=== PATIENT | female | born 1940 | race Caucasian/White ===

== ENCOUNTER → 2017-02-19 | Outpatient (CLI) | payer OTHER, BC ==
[~2017-02-19] MED LIST: ASPCH81X PO; BIOT1CAP8 PO; CHOL2000 PO; DONE10TA12 PO; FSM70 PO
[2017-02-19 10:21] LABS: HEMATOCRIT 42.4 % (37-47); MEAN CELL VOLUME 91.4 fL (80-100); MEAN CORPUSCULAR HEMOGLOBIN 30.8 pg (25-34); MEAN CORPUSCULAR HGB CONC 33.7 g/dl (32-36); MEAN PLATELET VOLUME 10.7 fL (7.4-10.4); PLATELET COUNT 186 K/uL (130-400); RED BLOOD COUNT 4.64 M/uL (4.2-5.4); WHITE BLOOD COUNT 6.87 K/uL (4.8-10.8)
[2017-02-19 10:32] LABS: BLOOD UREA NITROGEN 24 mg/dl (7-18); BUN/CREATININE RATIO 18.2 (10-20); CALCIUM 9.4 mg/dl (8.5-10.1); CARBON DIOXIDE 30 mmol/L (21-32); CHLORIDE 103 mmol/L (98-107); GLUCOSE 114 mg/dl (70-99); PHOSPHORUS 2.8 mg/dl (2.5-4.9); SODIUM 138 mmol/L (136-145); URINE APPEARANCE CLEAR (CLEAR); URINE BILIRUBIN NEG (NEG); URINE COLOR YELLOW; URINE EPITHELIAL CELL AUTO >30 /lpf (0-5); URINE NITRITE NEG (NEG); URINE SPECIFIC GRAVITY 1.014 (1.000-1.030); UROBILINOGEN NEG (NEG)
[2017-02-19 10:34] LABS: MANUAL MICROSCOPIC REQUIRED? NO; REVIEW REQ? NO
[2017-02-19 10:46] LABS: URINE PROTIEN/CREAT RATIO 0.1 (0-0.2); URINE TOTAL PROTEIN 7.8 mg/dl (0-11.9)
== END | disposition home or self-care (01) ==
LOC: C.LAB1850 09:06
PROVIDERS: ATTEND Internal Medicine Nephrology
DX: I12.9 Hypertensive chronic kidney disease with stage 1 through stage 4 chronic kidney disease, or unspecified chronic kidney disease (principal); N18.3 Chronic kidney disease, stage 3 (moderate); E55.9 Vitamin D deficiency, unspecified

== ENCOUNTER → 2017-08-26 | Outpatient (CLI) | payer OTHER, BC ==
[2017-08-26 13:39] LABS: HEMATOCRIT 35.7 % (37-47); MEAN CELL VOLUME 87.7 fL (80-100); MEAN CORPUSCULAR HEMOGLOBIN 28.3 pg (25-34); MEAN CORPUSCULAR HGB CONC 32.2 g/dl (32-36); PLATELET COUNT 324 K/uL (130-400); RED BLOOD COUNT 4.07 M/uL (4.2-5.4); WHITE BLOOD COUNT 5.87 K/uL (4.8-10.8)
[2017-08-26 13:45] LABS: URINE APPEARANCE CLEAR (CLEAR); URINE BILIRUBIN NEG (NEG); URINE COLOR YELLOW; URINE NITRITE NEG (NEG); URINE PH 5.5 (4.5-7.5); URINE SPECIFIC GRAVITY 1.019 (1.000-1.030); UROBILINOGEN NEG (NEG)
[2017-08-26 13:49] LABS: MANUAL MICROSCOPIC REQUIRED? NO; REVIEW REQ? YES
[2017-08-26 14:24] LABS: URINE PROTIEN/CREAT RATIO 0.1 (0-0.2); URINE TOTAL PROTEIN 13.6 mg/dl (0-11.9)
[2017-08-26 14:40] LABS: BLOOD UREA NITROGEN 16 mg/dl (7-18); BUN/CREATININE RATIO 15.1 (10-20); CARBON DIOXIDE 23 mmol/L (21-32); CHLORIDE 103 mmol/L (98-107); CREATININE 1.06 mg/dl (0.60-1.20); GLUCOSE 91 mg/dl (70-99); PHOSPHORUS 2.5 mg/dl (2.5-4.9); POTASSIUM 3.8 mmol/L (3.5-5.1); SODIUM 139 mmol/L (136-145)
== END | disposition home or self-care (01) ==
LOC: C.LAB1850 12:15
PROVIDERS: ATTEND Internal Medicine Nephrology
DX: I12.9 Hypertensive chronic kidney disease with stage 1 through stage 4 chronic kidney disease, or unspecified chronic kidney disease (principal); N18.3 Chronic kidney disease, stage 3 (moderate); E55.9 Vitamin D deficiency, unspecified

== ENCOUNTER → 2018-02-22 | Outpatient (CLI) | payer OTHER, BC ==
[2018-02-22 14:38] LABS: HEMATOCRIT 40.7 % (37-47); HEMOGLOBIN 13.7 g/dL (12.0-16.0); MEAN CELL VOLUME 90.6 fL (80-100); MEAN CORPUSCULAR HEMOGLOBIN 30.5 pg (25-34); MEAN CORPUSCULAR HGB CONC 33.7 g/dl (32-36); MEAN PLATELET VOLUME 11.1 fL (7.4-10.4); PLATELET COUNT 174 K/uL (130-400); RED CELL DISTRIBUTION WIDTH CV 12.9 % (11.5-14.5); RED CELL DISTRIBUTION WIDTH SD 42.8 fL (36.4-46.3); WHITE BLOOD COUNT 6.82 K/uL (4.8-10.8)
[2018-02-22 15:45] LABS: ALBUMIN 3.7 gm/dl (3.4-5.0); BLOOD UREA NITROGEN 24 mg/dl (7-18); CARBON DIOXIDE 29 mmol/L (21-32); CREATININE 1.17 mg/dl (0.60-1.20); GLUCOSE 115 mg/dl (70-99); POTASSIUM 4.5 mmol/L (3.5-5.1); SODIUM 137 mmol/L (136-145)
[2018-02-22 15:46] LABS: PHOSPHORUS 2.9 mg/dl (2.5-4.9)
== END | disposition home or self-care (01) ==
LOC: C.LAB1850 13:24
PROVIDERS: ATTEND Internal Medicine Nephrology
DX: N18.3 Chronic kidney disease, stage 3 (moderate) (principal); E55.9 Vitamin D deficiency, unspecified; I12.9 Hypertensive chronic kidney disease with stage 1 through stage 4 chronic kidney disease, or unspecified chronic kidney disease

== ENCOUNTER 2021-12-12 20:54 | Observation (INO) ==
--- NOTE | 2021-12-12 21:50 | Emergency Department Note ---
History of Present Illness General Chief complaint: Chest Pain Stated complaint: Chest Pain Time Seen by Provider: 12/12/21 21:19 Source: patient, family ( who is at the bedside) and old records reviewed Mode of arrival: EMS Limitations: no limitations History of Present Illness Maximum Pain Intensity: 0 This patient is a an 81-year-old female who comes in after midepigastric pain after eating dinner around 7:00 it was sharp it did not radiate she was a little diaphoretic denies shortness of breath. It lasted greater than 30 minutes she just eaten some spaghetti. Nothing particular made it better or worse it just went away she is asymptomatic at present. Denies pain or swelling of her lower legs. No recent illness no fever chills. no trauma. no cough or shortness of breath. Home Medications Medication Instructions Recorded Confirmed Type alendronate 70 mg tablet 70 mg PO WK 09/05/18 12/12/21 History aspirin 81 mg tablet,delayed 81 mg PO HS 09/05/18 12/12/21 History release (Aspirin Low Dose) biotin 1 mg capsule 1 mg PO QAM 09/05/18 12/12/21 History cholecalciferol (vitamin D3) 50 2,000 units PO QAM 09/05/18 12/12/21 History mcg (2,000 unit) capsule (Vitamin D3) donepezil 10 mg tablet 10 mg PO HS 09/05/18 12/12/21 History memantine 10 mg tablet 10 mg PO BID 09/05/18 12/12/21 History Allergies Allergy/AdvReac Type Severity Reaction Status Date / Time Sulfa (Sulfonamide Allergy Mild mild rash Verified 12/12/21 21:51 Antibiotics) niacin Allergy Unknown UNSURE Verified 12/12/21 21:51 Past Med/Surg History Medical History (Updated 12/13/21 @ 01:29 by Jese Tian MD) History of cognitive deficit Osteoporosis Prolapsed uterus Stage 3 chronic kidney disease Vitamin D deficiency Surgical History History of left salpingo-oophorectomy Hx of colonoscopy Hx of hernia repair Hx of tonsillectomy Family History Sister Kidney disease Other Dyslipidemia No pertinent family history Social History Smoking Status: Never smoker Second Hand Exposure: Yes ( A CHILD); Hx Alcohol Use: Yes Alcohol type: wine Hx Substance Use: No Preferred Language: German Communication Ability: Effective Visual Impairment: No Limitations Manager Science Required: No Beliefs That Will Affect Care: None Current Living Situation: Spouse Feels Safe at Home: Yes Assistive Devices: Glasses Review of Systems A total of 10 systems reviewed and were otherwise negative Physical Exam Vital Signs Vital Signs - 24 hr 12/12/21 21:05 12/12/21 22:02 12/12/21 23:32 Temperature 36.7 C Temperature Source Oral Pulse Rate 80 78 Pulse Rate [Apical] 76 68 Pulse Rhythm Regular Pulse Rhythm [Apical] Regular Regular Pulse Strength Normal Pulse Strength [Apical] Normal Normal Respiratory Rate 16 16 16 Respiratory Effort / Characteristics Non-Labored Spontaneous Non-Labored Spontaneous Respiratory Depth Normal Normal Respiratory Pattern Regular Blood Pressure 175/127 H Blood Pressure [Right Arm] 151/70 H 150/74 H Blood Pressure Mean 143 Blood Pressure Mean [Right Arm] 97 99 Blood Pressure Position Lying Blood Pressure Position [Right Arm] Lying Lying Pulse Oximetry 100 100 96 Oxygen Delivery Method Room Air Room Air Room Air Sepsis Recent Fever Within 48 Hours No Sepsis New/Unexplained Change in Mental Status N/A Sepsis Action Taken by Nursing No Action Required 12/13/21 00:25 Temperature Temperature Source Pulse Rate Pulse Rate [Apical] 74 Pulse Rhythm Pulse Rhythm [Apical] Regular Pulse Strength Pulse Strength [Apical] Normal Respiratory Rate 16 Respiratory Effort / Characteristics Non-Labored Spontaneous Respiratory Depth Normal Respiratory Pattern Blood Pressure Blood Pressure [Right Arm] 148/64 H Blood Pressure Mean Blood Pressure Mean [Right Arm] 92 Blood Pressure Position Blood Pressure Position [Right Arm] Lying Pulse Oximetry 97 Oxygen Delivery Method Room Air Sepsis Recent Fever Within 48 Hours Sepsis New/Unexplained Change in Mental Status Sepsis Action Taken by Nursing General: Well developed well nourished older female who appears in no acute distress, breathing comfortably on room air. Normal speech HEENT: Normal cephalic atraumatic. Pupils are equal round and reactive to light. Extraocular movements are intact. Oropharynx is pink with moist mucous membranes. No swelling of the mouth lips or tongue. Neck: Supple with a midline trachea. No meningeal signs or stiffness, no JVD or bruits. No Stridor. Chest: Clear to auscultation bilaterally. No wheezes or rhonchi. No increased work of breathing. Heart: Regular rate and rhythm without murmurs or gallops. Abdomen: Soft mildly tender in the epigastric area nondistended without rebound guarding or rigidity. Extremities: No cyanosis clubbing or edema. No calf tenderness or assymetry Spine/Back. Non tender to palpation. No CVA tenderness Skin: Good turgor without rashes. Neurologic exam: Cranial nerves two through 12 are intact. Motor and sensation are intact and symmetrical throughout. Medical Decision Making Differential Diagnosis Acute coronary syndrome, arrhythmia, gallbladder disease, GERD, musculoskeletal, hiatal hernia, peptic ulcer disease, pancreatitis, bowel obstruction, bowel gas Medical Records Attestation: I reviewed the patient's medical records. Home Medications Current Medication List: was personally reviewed by me Laboratory Data Attestation: I reviewed the patient's lab results. Result diagrams: 12/12/21 21:56 12/12/21 21:56 Lab Results 12/12/21 12/12/21 12/12/21 Range/Units 21:56 21:56 21:56 WBC 8.44 (4.8-10.8) K/uL RBC 4.18 L (4.2-5.4) M/uL Hgb 11.9 L (12.0-16.0) g/dL Hct 36.2 L (37-47) % MCV 86.6 (80-100) fL MCH 28.5 (25-34) pg MCHC 32.9 (32-36) g/dL RDW Std Deviation 40.8 (36.4-46.3) fL RDW Coeff of Isma 12.7 (11.5-14.5) % Plt Count 187 (130-400) K/uL MPV 10.4 (7.4-10.4) fL Immature Gran % (Auto) 0.1 % Neut % (Auto) 81.8 % Lymph % (Auto) 12.6 % [place] % (Auto) 4.6 % Eos % (Auto) 0.7 % Baso % (Auto) 0.2 % Neut # (Auto) 6.90 H (1.4-6.5) K/uL Lymph # (Auto) 1.06 L (1.2-3.4) K/uL [place] # (Auto) 0.39 (0.11-0.59) K/uL Eos # (Auto) 0.06 (0-0.5) K/uL Baso # (Auto) 0.02 (0-0.2) K/uL Immature Gran # (Auto) 0.01 (0.00-0.02) K/uL PT 10.9 (9.0-12.0) Seconds INR 1.0 (0.9-1.1) APTT 21.7 (21.0-31.0) Seconds PTT Ratio 0.8 Sodium 136 (136-145) mmol/L Potassium 4.0 (3.5-5.1) mmol/L Chloride 103 (98-107) mmol/L Carbon Dioxide 23 (21-32) mmol/L Anion Gap 10 (3-11) BUN 21 (6-23) mg/dl Creatinine 1.11 (0.6-1.2) mg/dl Est Cr Clr Drug Dosing 34.6 ml/min Est GFR ( Amer) 53.2 ml/min Est GFR (Non-Af Amer) 45.9 ml/min BUN/Creatinine Ratio 18.9 (10-20) Glucose 139 H (70-99(Fasting)) mg/dl Calcium 9.6 (8.5-10.1) mg/dl Total Bilirubin 0.2 (0.2-1.0) mg/dl AST 17 (13-39) U/L ALT 10 (7-52) U/L Alkaline Phosphatase 107 H (34-104) U/L Troponin I < 0.03 (0-0.04) ng/ml Total Protein 7.0 (6.0-8.3) gm/dl Albumin 4.0 (3.4-5.0) gm/dl Globulin 3.0 (2.5-4.0) gm/dl Albumin/Globulin Ratio 1.3 (0.9-2) Lipase 48 (11-82) U/L Imaging Data Attestation: I personally reviewed and interpreted this imaging study as follows: My Impression: Chest x-rayno acute infiltrate, failure, pneumothorax seen Radiologist's Impression: Stat radultrasound gallbladder. 1.1 cm stone in the fundus of the gallbladder. No intrahepatic or extrahepatic biliary ductal dilation no right hydronephrosis. Gallbladder wall measures upper limits of normal at 3 mm. Visualized portion of liver and pancreas are within normal limits ECG Data Attestation: I personally reviewed and interpreted this ECG as follows: Indication: + chest pain Rate (beats per minute): 78 Rhythm: + normal sinus ECG Intervals/blocks: + Normal QRS, + Normal QT and + Normal GA ECG [place]: + Normal ECG ST segments: + Normal ST segments ECG Findings: no PACs or no PVCs Comparison ECG Date: from (04/15/19) Change: no significant change Additional Comments: EKG #2: Normal sinus rhythm with a rate of 73. No acute ischemic changes or ectopy. No change compared to EKG #1 MDM Narrative This patient comes in as described above. She was placed in room B7. She came in by ambulance she is now asymptomatic. EKG chest x-ray multiple blood testing was obtained. She was reassessed frequently. She remained stable. EKG x2 does not show any definite ischemic changes troponin is negative. Chest x-ray does not show congestive heart failure, pneumonia, or pneumothorax. Her liver fu nctions are normal but on gallbladder ultrasound she does have a large stone there is no evidence of ductal dilatation it is possible that after eating her fatty meal this did cause some discomfort. Given her age, I still do worry about cardiac disease although her work-up thus far is reassuring I talked to the patient her at length and suggested that she be admitted/observe for further treatment and evaluation and cardiac rule out. She has taken aspirin already today. I did consult Dr. Vergara and they saw the patient in ER for these measures. Continuous cardiac monitoring: Orders placed in EMR for continuous nuclear monitoring technician. Upon my interpretation the patient was noted to be in normal sinus rhythm with a rate of 70 Impression & Plan Chest pain, Epigastric abdominal pain, Gallstone, Diaphoresis Discharge Plan Visit Data Chief Complaint: Chest Pain Stated Complaint: Chest Pain ED Provider: Jese Tian Discharge Problem: Chest pain, Epigastric abdominal pain, Gallstone, Diaphoresis Forms Stand Alone Forms: My [facility] [employer] Prescriptions Prescriptions: No Action memantine 10 mg Tablet 10 mg PO BID RF: 0 alendronate 70 mg Tablet 70 mg PO WK RF: 0 aspirin [Aspirin Low Dose] 81 mg Tablet,Delayed Release (Dr/Ec) 81 mg PO HS RF: 0 cholecalciferol (vitamin D3) [Vitamin D3] 2,000 unit Capsule 2,000 units PO QAM RF: 0 biotin 1 mg Capsule 1 mg PO QAM RF: 0 donepezil 10 mg Tablet 10 mg PO HS RF: 0 Referrals Referrals: Ozzie Keys MD [Primary Care Provider] -
[2021-12-12 22:13] LABS: Basophils # (auto) 0.02 K/uL (0-0.2); Basophils % (auto) 0.2 %; Eosinophils # (auto) 0.06 K/uL (0-0.5); Eosinophils % (auto) 0.7 %; Hematocrit (blood only) 36.2 % (37-47); Hemoglobin 11.9 g/dL (12.0-16.0); Immature Granulocytes # (auto) 0.01 K/uL (0.00-0.02); Immature Granulocytes % (auto) 0.1 %; Lymphocytes # (auto) 1.06 K/uL (1.2-3.4); Lymphocytes % (auto) 12.6 %; Mean Corpuscular Hemoglobin 28.5 pg (25-34); Mean Corpuscular Hgb Conc 32.9 g/dL (32-36); Mean Corpuscular Volume 86.6 fL (80-100); Mean Platelet Volume 10.4 fL (7.4-10.4); Monocytes # (auto) 0.39 K/uL (0.11-0.59); Monocytes % (auto) 4.6 %; Neutrophils % (auto) 81.8 %; Platelet Count 187 K/uL (130-400); RDW Coefficient of Variation 12.7 % (11.5-14.5); RDW Standard Deviation 40.8 fL (36.4-46.3); Red Blood Count 4.18 M/uL (4.2-5.4); White Blood Count 8.44 K/uL (4.8-10.8)
[2021-12-12 22:30] LABS: Partial Thromboplastin Ratio 0.8; Partial Thromboplastin Time 21.7 Seconds (21.0-31.0); Prothrombin Time 10.9 Seconds (9.0-12.0)
[2021-12-12 22:35] LABS: Alanine Aminotransferase 10 U/L (7-52); Albumin Globulin Ratio 1.3 (0.9-2); Alkaline Phosphatase 107 U/L (34-104); Anion Gap 10 (3-11); Aspartate Aminotransferase 17 U/L (13-39); BUN Creatinine Ratio 18.9 (10-20); Bilirubin,Total 0.2 mg/dl (0.2-1.0); Blood Urea Nitrogen 21 mg/dl (6-23); Calcium 9.6 mg/dl (8.5-10.1); Carbon Dioxide 23 mmol/L (21-32); Chloride 103 mmol/L (98-107); Creatinine Clr Calc Pharmacy 34.6 ml/min; Est GFR (African American) 53.2 ml/min; Est GFR (Non-African American) 45.9 ml/min; Glucose 139 mg/dl (70-99(Fasting)); Lipase 48 U/L (11-82); Sodium 136 mmol/L (136-145); Troponin I < 0.03 ng/ml (0-0.04)
--- NOTE | 2021-12-13 00:35 | History & Physical Report ---
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 Admitted for ACS rule out and further evaluation of gallstone findings. Epigastric/lower chest pain Most likely related to gallstones seen on ultrasound versus GERD, less likely cardiac Admit to med telemetry for observation Nonetheless will trend troponins Cardiac monitoring Pantoprazole 40 mg p.o. daily HIDA scan ordered for further evaluation of gallbladder findings on ultrasound As needed nausea and pain medications Lipid profile a.m. 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 Patient states she had a relatively large plate of spaghetti for dinner. Shortly after had severe nonradiating pain that was sharp, about 7 out of 10 in intensity. She felt mildly short of breath. Did not have nausea or vomiting with this. She mentions it went away pretty quickly thereafter but she was concerned enough to visit the emergency department for further evaluation. In the ED patient had labs showing mild anemia with hemoglobin of 11.9, mildly elevated alk phos to 107, normal electrolytes, negative troponin. EKG showed normal sinus rhythm, chest x-ray was unremarkable. She had ultrasound of the gallbladder showing 1.1 cm stone within the fundus of the gallbladder per stat rad. Currently patient stating that her pain has completely resolved. She continues to be hemodynamically stable, saturating adequately on room air. Otherwise denying chest pain, palpitations, shortness of breath, nausea, vomiting, swelling, numbness, tingling, headache, dizziness. Allergies Allergy/AdvReac Type Severity Reaction Status Date / Time Sulfa (Sulfonamide Allergy Mild mild rash Verified 12/12/21 21:51 Antibiotics) niacin Allergy Unknown UNSURE Verified 12/12/21 21:51 Home Medications Medication Instructions Recorded Confirmed Type alendronate 70 mg tablet 70 mg PO WK 09/05/18 12/12/21 History aspirin 81 mg tablet,delayed 81 mg PO HS 09/05/18 12/12/21 History release (Aspirin Low Dose) biotin 1 mg capsule 1 mg PO QAM 09/05/18 12/12/21 History cholecalciferol (vitamin D3) 50 2,000 units PO QAM 09/05/18 12/12/21 History mcg (2,000 unit) capsule (Vitamin D3) donepezil 10 mg tablet 10 mg PO HS 09/05/18 12/12/21 History memantine 10 mg tablet 10 mg PO BID 09/05/18 12/12/21 History Past Med/Surg History Medical History (Updated 12/13/21 @ 01:29 by Jese Tian MD) History of cognitive deficit Osteoporosis Prolapsed uterus Stage 3 chronic kidney disease Vitamin D deficiency Surgical History History of left salpingo-oophorectomy Hx of colonoscopy Hx of hernia repair Hx of tonsillectomy Family History Sister Kidney disease Other Dyslipidemia No pertinent family history Social History Smoking Status: Never smoker Second Hand Exposure: Yes ( A CHILD); Hx Alcohol Use: Yes Alcohol type: wine Hx Substance Use: No Preferred Language: Mauritanian Communication Ability: Effective Visual Impairment: No Limitations Parts Sales Representative Required: No Beliefs That Will Affect Care: None Current Living Situation: Spouse Current Living Situation Comment: Home with Feels Safe at Home: Yes Assistive Devices: Glasses Review of Systems Review of Systems: All systems reviewed & are unremarkable except as noted in HPI & below Physical Exam Physical Exam: GENERAL: A&Ox3. NAD. HEENT: PERRL, EOMI. Moist mucous membranes. NECK: No JVD. No lymphadenopathy. CHEST/LUNGS: CTAB A/P. No crackles, wheezes, rales, rhonchi. HEART: RRR. No m/g/r. No carotid bruits. ABDOMEN: TTP mid epigastric region, ND, soft. BS+ x4. Franklin sign negative. EXTREMITIES: No cyanosis, no clubbing, no edema SKIN: Warm and dry. No rashes or lesions. PSYCHIATRIC: Euthymic affect, no SI, no pressured speech, no hallucinations NEUROLOGIC: No FND. CN II-XII grossly intact. Results & Data Results & Data ([facility]) Vital Signs (Past 12 Hours) Vital Signs Temp Pulse Pulse Resp BP BP Pulse Ox 12/13/21 00:25 74 16 148/64 H 97 12/12/21 23:32 68 16 150/74 H 96 12/12/21 22:02 78 16 100 12/12/21 21:05 36.7 C 80 76 16 175/127 H 151/70 H 100 Supervising Physician Co-Signing Physician Notes Attending addendum: I have physically seen this patient, have supervised the medical residents activities, and agree with the H&P unless as otherwise noted. Assessment and Plan: Substernal chest pain- The patient will be admitted to telemetry for serial cardiac enzymes, serial EKG's, cardiac rhythm monitoring and a 2-D echocardiogram with Dopplers. Epigastric pain- Ultrasound gallbladder showing concerns for possible cholecystitis, with gallbladder wall thickening and gallstone Order HIDA scan with gallbladder ejection fraction N.p.o. except medications IV fluids Dementia- Continue donepezil and memantine Remaining orders and notations as noted Resident Activity Tracking Resident Involvement: Resident Care Provided Care Provided: Adult Hospital Medicine (1) Gallstone Biliary obstruction: without biliary obstruction Cholecystitis presence: without cholecystitis Qualified Code(s): K80.20 - Calculus of gallbladder without cholecystitis without obstruction
[2021-12-13] MEDS ORDERED: LACTATED RINGER'S 1,000 ML IV SCH (01:45)
[2021-12-13] MEDS ORDERED: MAGNESIUM HYDROXIDE SUSP 30 ML UDC PO PRN (02:28)
[2021-12-13] MEDS ORDERED: ALUMINUM/MAGNESIUM SUSP 30 ML UDC PO PRN (02:28)
[2021-12-13] MEDS ORDERED: ONDANSETRON INJ 2 MG/ML 2 ML VIAL IV PRN (02:28)
[2021-12-13] MEDS ORDERED: POLYETHYLENE (MIRALAX) 17 GM PACK PO PRN (02:28)
[2021-12-13] MEDS ORDERED: ACETAMINOPHEN 325 MG TAB PO PRN (02:28)
[2021-12-13 06:06] LABS: Basophils # (auto) 0.02 K/uL (0-0.2); Basophils % (auto) 0.3 %; Eosinophils # (auto) 0.11 K/uL (0-0.5); Eosinophils % (auto) 1.8 %; Hematocrit (blood only) 35.1 % (37-47); Hemoglobin 11.5 g/dL (12.0-16.0); Immature Granulocytes # (auto) 0.01 K/uL (0.00-0.02); Immature Granulocytes % (auto) 0.2 %; Lymphocytes # (auto) 2.05 K/uL (1.2-3.4); Lymphocytes % (auto) 33.7 %; Mean Corpuscular Hemoglobin 28.1 pg (25-34); Mean Corpuscular Hgb Conc 32.8 g/dL (32-36); Mean Corpuscular Volume 85.8 fL (80-100); Mean Platelet Volume 10.6 fL (7.4-10.4); Monocytes # (auto) 0.54 K/uL (0.11-0.59); Monocytes % (auto) 8.9 %; Neutrophils # (auto) 3.35 K/uL (1.4-6.5); Neutrophils % (auto) 55.1 %; Platelet Count 208 K/uL (130-400); RDW Coefficient of Variation 12.8 % (11.5-14.5); RDW Standard Deviation 40.5 fL (36.4-46.3); Red Blood Count 4.09 M/uL (4.2-5.4); White Blood Count 6.08 K/uL (4.8-10.8)
[2021-12-13 06:34] LABS: Troponin I < 0.03 ng/ml (0-0.04)
--- NOTE | 2021-12-13 06:36 | XRay Report ---
XR chest 1V portable CLINICAL HISTORY: Chest Pain. COMPARISON STUDY: No previous studies for comparison. TECHNIQUE: 1 view of the chest FINDINGS: Single frontal view of the chest demonstrates the cardiomediastinal silhouette to be within normal li mits. There is a moderate size hiatal hernia in the retrocardiac space. The lungs are clear of alveol ar opacities. There is no evidence for pleural effusion. There is no evidence for vascular congestion . There is no acute osseous pathology. IMPRESSION: 1. No acute cardiopulmonary disease. ACT 112: Negative or not required by law. Electronically signed by: Yimi Saavedra M.D. 12/13/2021 6:35 AM
[2021-12-13 06:40] LABS: Alanine Aminotransferase 11 U/L (7-52); Albumin Globulin Ratio 1.1 (0.9-2); Albumin Level 3.7 gm/dl (3.4-5.0); Alkaline Phosphatase 106 U/L (34-104); Anion Gap 7 (3-11); Aspartate Aminotransferase 15 U/L (13-39); BUN Creatinine Ratio 20.2 (10-20); Bilirubin,Total 0.3 mg/dl (0.2-1.0); Blood Urea Nitrogen 21 mg/dl (6-23); Calcium 8.5 mg/dl (8.5-10.1); Carbon Dioxide 24 mmol/L (21-32); Chloride 107 mmol/L (98-107); Chol HDL Ratio 3.7 (0-5); Cholesterol 161 mg/dl (0-200); Creatinine Clr Calc Pharmacy 36.9 ml/min; Est GFR (African American) 57.5 ml/min; Est GFR (Non-African American) 49.6 ml/min; Globulin 3.3 gm/dl (2.5-4.0); Glucose 95 mg/dl (70-99(Fasting)); HDL Cholesterol 44 mg/dl; LDL Cholesterol Calculated 99 mg/dl; Potassium 3.7 mmol/L (3.5-5.1); Sodium 138 mmol/L (136-145); Triglycerides 89 mg/dl (0-150); VLDL Cholesterol 18 mg/dl (0-30)
--- NOTE | 2021-12-13 07:13 | Ultrasound Report ---
US gallbladder LIMITED ABDOMEN CLINICAL HISTORY: eval for gb diseas. Epigastric pain COMPARISON: None. TECHNIQUE: Multiple grayscale and color images of the right upper quadrant of the abdomen. FINDINGS: Pancreas: The pancreas is within normal limits with no focal mass or peripancreatic fluid collection identified. Liver: The liver is homogeneous in echogenicity There is no evidence for a focal mass. There is no in trahepatic biliary duct dilatation. Gallbladder: The gallbladder is well distended with cholelithiasis. Posterior acoustic shadowing is demonstrated. There is no evidence for wall thickening or pericholecystic edema. Common Bile Duct: (CBD): It is normal in size measuring 4 mm. Inferior Vena Cava (IVC): The imaged IVC is patent. Right kidney: There is no evidence for hydronephrosis, calculus or gross renal mass. The kidney is n ormal in size. IMPRESSION: 1. Cholelithiasis with no definite ultrasound evidence for acute cholecystitis. ACT 112: Negative or not required by law. Electronically signed by: Yimi Saavedra M.D. 12/13/2021 7:12 AM
[2021-12-13] MEDS ORDERED: NON-FORMULARY MEDICATION (Biotin 1 mg Capsule) PO SCH (09:00)
[2021-12-13] MEDS ORDERED: CHOLECALCIFEROL 1,000 UNITS 25 MCG TAB PO SCH (09:00)
[2021-12-13] MEDS ORDERED: PANTOprazole 40 MG TAB PO SCH (09:00)
[2021-12-13] MEDS ORDERED: ENOXAPARIN INJ 40 MG/0.4 ML SYR SQ SCH (09:00)
[2021-12-13] MEDS ORDERED: MEMANTINE HCL 10 MG TAB PO SCH (09:00)
--- NOTE | 2021-12-13 11:23 | XCELERA ---
[id number]
--- NOTE | 2021-12-13 11:40 | Discharge Summary ---
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 Patient states she had a relatively large plate of spaghetti for dinner. Shortly after had severe nonradiating pain that was sharp, about 7 out of 10 in intensity. She felt mildly short of breath. Did not have nausea or vomiting with this. She mentions it went away pretty quickly thereafter but she was concerned enough to visit the emergency department for further evaluation. In the ED patient had labs showing mild anemia with hemoglobin of 11.9, mildly elevated alk phos to 107, normal electrolytes, negative troponin. EKG showed normal sinus rhythm, chest x-ray was unremarkable. She had ultrasound of the gallbladder showing 1.1 cm stone within the fundus of the gallbladder per stat rad. Currently patient stating that her pain has completely resolved. She continues to be hemodynamically stable, saturating adequately on room air. Otherwise denying chest pain, palpitations, shortness of breath, nausea, vomiting, swelling, numbness, tingling, headache, dizziness. Admission Exam Per Admitting Provider GENERAL: A&Ox3. NAD. HEENT: PERRL, EOMI. Moist mucous membranes. NECK: No JVD. No lymphadenopathy. CHEST/LUNGS: CTAB A/P. No crackles, wheezes, rales, rhonchi. HEART: RRR. No m/g/r. No carotid bruits. ABDOMEN: TTP mid epigastric region, ND, soft. BS+ x4. Franklin sign negative. EXTREMITIES: No cyanosis, no clubbing, no edema SKIN: Warm and dry. No rashes or lesions. PSYCHIATRIC: Euthymic affect, no SI, no pressured speech, no hallucinations NEUROLOGIC: No FND. CN II-XII grossly intact. Principal Diagnosis Epigastric Pain Discharge Exam Constitutional WD/WN, vitals as above Eyes PERRL, conjunctivae normal, anicteric sclerae Neck trachea midline, no thyromegaly Respiratory normal respiratory effort, lungs clear to auscultation Cardiovascular RRR, no murmur, no edema Gastrointestinal (Abdomen) normal bowel sounds, soft, nontender, no hepatosplenomegaly Musculoskeletal Head/Neck/Chest: normocephalic and head atraumatic Skin no rashes, warm and dry Neurologic CN's II-XI intact bilaterally, moves all extremities and awake Psychiatric A+Ox3, euthymic affect Discharge Data Allergies Allergy/AdvReac Type Severity Reaction Status Date / Time Sulfa (Sulfonamide Allergy Mild mild rash Verified 12/12/21 21:51 Antibiotics) niacin Allergy Unknown UNSURE Verified 12/12/21 21:51 Consultations 12/13/21 00:34 ED Decision to Admit Stat Ordered Studies 12/12/21 21:35 US gallbladder Urgent Hospital Course (1) Epigastric abdominal pain: (2) Gallstone: (3) Stage 3 chronic kidney disease: (4) Vitamin D deficiency: Emilee Long is an 81-year-old female with a past medical history of stage III CKD, 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 Admitted for ACS rule out and further evaluation of gallstone findings. Epigastric/lower chest pain Most likely related to gallstones seen on ultrasound versus GERD, unlikely cardiac due to negative troponin and no EKG changes suggestive of ischemia Cardiac monitoring d/c'd due to unlikely Recommend taking PPI at home HIDA scan ordered for further evaluation of gallbladder findings on ultrasound, however, not available on weekend. -Could benefit in outpatient but will defer management to PCP CKD stage III Follows with [facility] No current CONSTANTINE Monitor metabolic panel Avoid nephrotoxic medications Dementia Continue home donepezil and memantine Osteoporosis/vitamin D deficiency Continue home vitamin D3 CODE STATUS: DNR/DNI Diet: N.p.o., LR at 100 cc/h Dispo: Discharge home Total Time Total Time Spent Total Time Spent (In Minutes): 30 Discharge Plan Discharge Items Patient Disposition: Home - Self-Care Reason For Visit: EPIGASTRIC / LOWER CHEST PAIN Discharge Diagnosis: Epigastric Pain Activity: Per Instructions section Non-emergency contact: Primary Care Provider Call non-emergency contact if: you have any medication questions, your symptoms worsen, your pain is not controlled and your pain is worsening Follow-up/Referrals: Ozzie Keys MD [Primary Care Provider] - Diet: Low Fat Addtl Attending Provider Instructions: You were seen in the hospital for upper abdominal discomfort. When you were seen in the emergency department you had a right upper quadrant ultrasound done which did reveal a large stone in your gallbladder, however, it appears that your gallbladder is not acutely inflamed and there does not seem to be signs of acute cholecystitis. In addition you did have a cardiac work-up which was ultimately negative not revealing any form of evidence for ischemia or cardiac damage. At this time we feel that you are stable for discharge and to have routine follow-up with your primary care provider will make recommendations further. It has been a pleasure to be a part of your care and we wish you the best in your health in your recovery. Pending Studies at Discharge: No Stand-Alone Forms: [facility], Smoking Cessation Medications and DC Order Prescriptions: Continued memantine 10 mg Tablet 10 mg PO BID RF: 0 alendronate 70 mg Tablet 70 mg PO WK RF: 0 aspirin [Aspirin Low Dose] 81 mg Tablet,Delayed Release (Dr/Ec) 81 mg PO HS RF: 0 cholecalciferol (vitamin D3) [Vitamin D3] 2,000 unit Capsule 2,000 units PO QAM RF: 0 biotin 1 mg Capsule 1 mg PO QAM RF: 0 donepezil 10 mg Tablet 10 mg PO HS RF: 0 Discharge Orders: Discharge Order (Routine); Ordered 12/13/21 Ordered By: Luis Floyd Admission Data Admit Date/Time: 12/13/21 02:09 Attending Provider: Dominic Hunt Admit Provider: Juan Weldon Primary Care Provider: Ozzie Keys Other Providers: Paresh Mondragon Other Interventions: Discharge Summary Assessment (RN) Last Done: 12/13/21 12:33 Supervising Physician Co-Signing Physician Notes I personally examined the patient and verified all reyes points of history and exam, discussed case, and agree with decision making with Dr Floyd feeling better, wants to go home vitals noted nad heent nc at mmm breathing unlabored no accessory muscles good effort skin no rashes no pallor or icterus otherwise as above abdominal pain -prob indigestion -possible biliary -observe is her pref. safe for home - declines further w/u at this time - notes that if recurrent/persistent then will w/u further for biliary/GB - but watchful waiting > further diagnostics is her preference Resident Activity Tracking Resident Involvement: Resident Care Provided Care Provided: Adult Hospital Medicine
--- NOTE | 2021-12-13 17:15 | Billing Data ---
Date of Service December 13, 2021 Coding Level of Care Code 78946 OBS Care - Discharge
--- NOTE | 2021-12-13 20:51 | Billing Data ---
Date of Service December 13, 2021 Coding Level of Care Code INT OBSERVATION CARE 70M LVL 3
[2021-12-13] MEDS ORDERED: ASPIRIN 81 MG ECTAB PO SCH (21:00)
[2021-12-13] MEDS ORDERED: DONEPEZIL HCL 10 MG TAB PO SCH (21:00)
--- NOTE | 2021-12-14 06:17 | Electrocardiogram Report ---
Test Reason : Blood Pressure : / mmHG Vent. Rate : 078 BPM Atrial Rate : 078 BPM P-R Int : 174 ms QRS Dur : 076 ms QT Int : 392 ms P-R-T Axes : 079 063 066 degrees QTc Int : 446 ms Normal sinus rhythm Possible Left atrial enlargement Borderline ECG When compared with ECG of 25-APR-2019 12:00, No significant change was found Confirmed by Agustín Linn ([id number]) on 12/14/2021 6:16:51 AM Referred By: REFERRED SELF Confirmed By:Agustín Linn
--- NOTE | 2021-12-14 06:28 | Electrocardiogram Report ---
Test Reason : Blood Pressure : / mmHG Vent. Rate : 068 BPM Atrial Rate : 068 BPM P-R Int : 174 ms QRS Dur : 080 ms QT Int : 418 ms P-R-T Axes : 078 072 068 degrees QTc Int : 444 ms Normal sinus rhythm Normal ECG When compared with ECG of 12-DEC-2021 21:02, No significant change was found Confirmed by Agustín Linn ([id number]) on 12/14/2021 6:28:28 AM Referred By: REFERRED SELF Confirmed By:Agustín Linn
--- NOTE | 2021-12-15 06:29 | Electrocardiogram Report ---
Test Reason : Blood Pressure : / mmHG Vent. Rate : 073 BPM Atrial Rate : 073 BPM P-R Int : 176 ms QRS Dur : 072 ms QT Int : 400 ms P-R-T Axes : 078 050 067 degrees QTc Int : 440 ms Normal sinus rhythm Normal ECG When compared with ECG of 12-DEC-2021 21:02, No significant change was found Confirmed by Agustín Linn ([id number]) on 12/15/2021 6:29:36 AM Referred By: REFERRED SELF Confirmed By:Agustín Linn
== END 2021-12-13 13:18 | disposition home or self-care (01) ==
LOC: 2N 20:54 → ED 20:54 → SUATTDRO 12-13 02:09 → 2N 12-13 02:11